=== PATIENT | female | born 1975 | race American Indian/Alaskan Native ===

== ENCOUNTER 2018-05-22 21:18 | Emergency (ER) | payer OTHER ==
--- NOTE | 2018-05-22 21:55 | Emergency Department Report ---
Blank Doc - Documentation Documentation: This is a 43-year-old female that presents with right pelvic pain. Patient de nies any urinary symptoms. Stated was also bitten by an insect around that area. Denies any nausea or vomiting. This initial assessment/diagnostic orders/clinical plan/treatment(s) is/are subject to change based on patient's health status, clinical progression and re- assessment by fellow clinical providers in the ED. Further treatment and workup at subsequent clinical providers discretion. Patient/guardians urged not to elope from the ED as their condition may be serious if not clinically assessed and managed. Initial orders include: 1- Patient sent to [facility] for further evaluation and treatment 2- Labs 3- UA
[2018-05-22 21:59] VITALS: BP 145/88
[2018-05-22 22:46] LABS: Basophils # (Auto) 0.1 K/mm3 (0.0-0.1); Basophils % (Auto) 0.8 % (0.0-1.8); Eosinophils # (Auto) 0.1 K/mm3 (0.0-0.4); Eosinophils % (Auto) 1.9 % (0.0-4.3); Hematocrit 32.9 % (30.3-42.9); Hemoglobin 11.4 gm/dl (10.1-14.3); Lymphocytes # (Auto) 2.4 K/mm3 (1.2-5.4); Lymphocytes % (Auto) 35.1 % (13.4-35.0); Mean Corpuscular HGB Conc 35 % (30-34); Mean Corpuscular Volume 84 fl (79-97); Monocytes # (Auto) 0.8 K/mm3 (0.0-0.8); Monocytes % (Auto) 11.6 % (0.0-7.3); Platelet Count 308 K/mm3 (140-440); Red Blood Count 3.93 M/mm3 (3.65-5.03); Red Cell Distribution Width 15.6 % (13.2-15.2)
[2018-05-22 23:01] LABS: Bacteria,Urine 2+ /HPF (Negative); Bilirubin,Urine NEG (Negative); Blood,Urine NEG (Negative); Color,Urine Straw (Yellow); Protein,Urine <15 mg/dL mg/dL (Negative); Urobilinogen,Urine < 2.0 mg/dL (<2.0)
[2018-05-22 23:02] LABS: HCG Qualitative,Urine Negative (Negative)
[2018-05-22 23:11] LABS: Alanine Aminotransferase 11 units/L (7-56); BUN/Creatinine Ratio 9; Blood Urea Nitrogen 7 mg/dL (7-17); Calcium 9.1 mg/dL (8.4-10.2); Hemolysis Index 47
[2018-05-22 23:16] LABS: Bilirubin,Direct < 0.2 mg/dL (0-0.2)
--- NOTE | 2018-05-23 00:26 | Emergency Department Report ---
[place] [facility] Chief Complaint: Abdominal Pain Stated Complaint: LOWER ABD PAIN Time Seen by Provider: 05/22/18 21:53 Duration: 3 Days Location: Back, Abdomen Rash Symptoms: Yes Blistering ED Review of Systems ROS: Stated complaint: LOWER ABD PAIN Other details as noted in HPI ED Past Medical Hx - Surgical History Additional Surgical History: right kidney removed-2002 - Social History Smoking Status: Never Smoker Substance Use Type: None - Medications Home Medications: Home Medications Medication Instructions Recorded Confirmed Last Taken Type Gabapentin [Neurontin] 100 mg PO TID #30 capsule 05/23/18 Unknown Rx HYDROcodone/ACETAMINOPHEN [[place] 1 each PO Q4H PRN #12 tablet 05/23/18 Unknown Rx 7.5-325 Tablet] Ibuprofen [Motrin 600 MG tab] 600 mg PO Q8H PRN #30 tablet 05/23/18 Unknown Rx Valacyclovir HCl [Valtrex] 1,000 mg PO TID #30 tablet 05/23/18 Unknown Rx Rash Exam - Exam General: Vital signs noted. No distress. Alert and acting appropriately. HEENT: No Periorbital Edema, No Conjuctival Injection, No Chemosis, No Perioral Edema, No Tongue Edema, No Uvular Edema, No Compromised Airway, No Drooling Lungs: Yes Good Air Exchange (Normal Breath Sounds), No Wheezes, No Ronchi, No Stridor, No Cough, No Labored Respirations, No Retractions, No Use of Accessory Muscles, No Other Abnormal Lung Sounds Heart: Yes Regular, No Murmur Skin: Yes Tenderness, Yes Other (group vessels on erythematous base that is from midline to midline following her dermatoid distribution.), No Urticarial Rash, No Maculopapular Rash, No Morbilliform rash Other: Positive: Abdomen Normal, Neurologic Normal, Musculoskeletal Normal ED Course Vital Signs 05/22/18 21:54 Temperature 98.5 F Pulse Rate 85 Respiratory 16 Rate Blood Pressure 145/88 O2 Sat by Pulse 99 Oximetry ED Medical Decision Making - Lab Data Result diagrams: 05/22/18 22:03 05/22/18 22:03 - Medical Decision Making Patient has been evaluated by this provider in fast track. Patient appears to have herpetic zoster. Patient will be discharged home on [place] 5/325, ibuprofen, valacyclovir and gabapentin. He was told to patient that she still needs to get her shingles vaccination. Patient's to follow up with her primary care provider I have listed [facility] for her convenience. Critical care attestation.: If time is entered above; I have spent that time in minutes in the direct care of this critically ill patient, excluding procedure time. ED Disposition Clinical Impression: Shingles rash Qualifiers: Herpes zoster complications: without complications Qualified Code(s): B02.9 - Zoster without complications Disposition: TO HOME OR SELFCARE Is pt being admited?: No Does the pt Need Aspirin: No Condition: Stable Instructions: Herpes Zoster (ED), Abdominal Pain (ED) Additional Instructions: Please take medication as prescribed. I recommend for used to have a shingles vaccination after completion of your medications. I will like for you to follow-up with a primary care provider I have listed one below for your convenience. Prescriptions: Ibuprofen [Motrin 600 MG tab] 600 mg PO Q8H PRN #30 tablet PRN Reason: Pain Gabapentin [Neurontin] 100 mg PO TID #30 capsule HYDROcodone/ACETAMINOPHEN [[place] 7.5-325 Tablet] 1 each PO Q4H PRN #12 tablet PRN Reason: Pain , Severe (7-10) Valacyclovir HCl [Valtrex] 1,000 mg PO TID #30 tablet Referrals: LEONEL SOTELO MD [Primary Care Provider] - 3-5 Days Forms: Work/School Release Form(ED)
== END 2018-05-23 00:35 | disposition home or self-care (01) ==
LOC: ED 21:18
DX: B02.9 Zoster without complications (principal)
CPT/HCPCS: 36415; 80048; 80076; 81001; 81025; 85025; 99283

== ENCOUNTER 2019-09-03 14:50 | Outpatient (CLI) | payer BC ==
--- NOTE | 2019-09-03 16:08 | Mammography Report ---
RIGHT DIAGNOSTIC MAMMOGRAM INDICATION: Right breast mass at the 9:00 position. COMPARISON: Outside imaging 07/30/2019 and 05/23/2019. FINDINGS: Right CC and ML mammograms were obtained. There is a cylindrical shaped biopsy marker in the right br east at the 9:00 position at the site of previously noted 9:00 breast mass. Biopsy marker appears julienne ropriately positioned. IMPRESSION: Post procedure mammogram demonstrate accurate placement of a biopsy marker within the right breast 9: 00 mass. Follow up recommendation: No recall. Postbiopsy imaging. Signer Name: Harmeet Hussein MD Signed: 09/03/2019 4:04 PM Workstation Name: [id number]
--- NOTE | 2019-09-03 16:10 | Ultrasound Report ---
ULTRASOUND-GUIDED CORE NEEDLE BIOPSY Right BREAST WITH CLIP PLACEMENT INDICATION: Right breast mass at the 9:00 position. COMPARISON: 05/23/2019. FINDINGS: Informed consent was obtained. The mass within the right breast at the 9:00 position, 4 cm from the n ipple, was identified with ultrasound. The overlying skin was cleansed with chloro prep and local ane sthesia was obtained with a 1% lidocaine solution. Under ultrasound guidance a 14-gauge spring loaded core biopsy needle was advanced to the lesion. A total of 5 core samples were obtained. A biopsy mar ker was placed to shin the site of the biopsy. Specimen samples were placed in formalin and sent to athology for analysis. Patient tolerated the procedure well and no immediate complications were identified. A post procedure mammogram demonstrates accurate placement of the biopsy marker. IMPRESSION: Technically successful ultrasound guided biopsy of right breast mass at the 9:00 position with accura te placement of a biopsy marker. An addendum will be added to this report at a later date with the pathology results. Signer Name: Harmeet Hussein MD Signed: 09/03/2019 4:05 PM Workstation Name: [id number]
== END 2019-09-03 14:51 | disposition home or self-care (01) ==
LOC: SPVWC 14:50
PROVIDERS: ATTEND Obstetrics & Gynecology
DX: N63.11 Unspecified lump in the right breast, upper outer quadrant (principal); N64.89 Other specified disorders of breast; Z79.899 Other long term (current) drug therapy
CPT/HCPCS: 88305; 88341; 88342